=== PATIENT | male | born 1940 | race Caucasian/White ===

== ENCOUNTER → 2021-01-04 | Day surgery (SDC) | payer MEDICARE, OTHER ==
[~2021-01-04] MED LIST: Propofol 200 MG/20 ML SDV ONE; Sodium Chloride 0.9% 1,000 ML IV SCH; fentaNYL 100 MCG/2 ML SDV ONE
--- NOTE | 2021-01-04 16:40 | OR ---
DATE OF PROCEDURE: 01/04/2021 SURGEON: Jhonatan Garzon MD PROCEDURE: Colonoscopy. FINDINGS: 1. Descending colon polyp, approximately 5 mm, completely removed using cold biopsy forceps. 2. Diverticulosis, mild. COMPLICATIONS: None. CHEMISTRY FACULTY MEMBER: None. ANESTHESIA: MAC. PREOPERATIVE DIAGNOSIS: Screening colonoscopy. POSTOPERATIVE DIAGNOSIS: Screening colonoscopy. RISKS: Risks, benefits, alternatives, and limitations including, but not limited to infection, bleeding, perforation, false positives and false negatives were explained to the patient, who wished to proceed. PROCEDURE IN DETAIL: The patient was placed in left lateral decubitus position. Digital rectal exam was performed without abnormality. Scope was introduced and advanced atraumatically to the ileocecal valve. A photo was taken. The scope was brought back to the ascending, transverse, descending colon, and retroflexed. No evidence of old or new blood. No masses. No polyps. No abnormalities on retroflexion. The diverticulosis described as above was very mild. Greater than 8 minutes was spent removing the scope. Prep was acceptable. Approximately 90% of the luminal surface could be seen. Jhonatan Garzon MD /[id number]
== END ==
LOC: JP.SDS 07:55
PROVIDERS: ATTEND Surgery
DX: Z12.11 Encounter for screening for malignant neoplasm of colon (principal); D12.4 Benign neoplasm of descending colon; K57.30 Diverticulosis of large intestine without perforation or abscess without bleeding; I10 Essential (primary) hypertension; E11.9 Type 2 diabetes mellitus without complications; E66.9 Obesity, unspecified; Z68.37 Body mass index [BMI] 37.0-37.9, adult
CPT/HCPCS: 88305; J2704; J3010; J7030

== ENCOUNTER 2022-02-26 08:19 | Day surgery (SDC) | payer MEDICARE, OTHER ==
[~2022-02-26 08:19] MED LIST changes: +Midazolam 1 MG/ML 2 ML SDV ONE; -Sodium Chloride 0.9% 1,000 ML IV SCH
[2022-02-26] MEDS ORDERED: Dextrose 5%-Lactated Ringers 1,000 ML IV SCH (08:30)
[2022-02-26] MEDS ORDERED: Meropenem 500 MG in Sodium Chloride 0.9% 50 ML IV ONE (09:45)
[2022-02-26] MEDS ORDERED: Lidocaine 1% 50 ML MDV ONE (10:08)
[2022-02-26] MEDS ORDERED: Bupivacaine 0.5%/EPINEPHrine 1:200,000 50 ML MDV ONE (10:08)
[2022-02-26] MEDS ORDERED: Propofol 200 MG/20 ML SDV ONE ×2 (11:16→11:41)
[2022-02-26] MEDS ORDERED: Bacitracin Oint 1 GM U/D Packet ONE (11:31)
[2022-02-26 13:16] VITALS: BP 108/58; PULSE 54
== END 2022-02-26 13:00 | disposition home or self-care (01) ==
LOC: JP.SDS 08:19
PROVIDERS: ATTEND Surgery
DX: D23.71 Other benign neoplasm of skin of right lower limb, including hip (principal); I10 Essential (primary) hypertension; E11.9 Type 2 diabetes mellitus without complications; E66.9 Obesity, unspecified; E78.5 Hyperlipidemia, unspecified; Z79.810 Long term (current) use of selective estrogen receptor modulators (SERMs); Z79.899 Other long term (current) drug therapy
CPT/HCPCS: J2001; J2185; J2250; J2704; J3010; J3490; J7121

== ENCOUNTER 2024-10-12 12:07 | Inpatient (IN) | payer MEDICARE, OTHER ==
[2024-10-12] MEDS ORDERED: Polyethylene Glycol 3350 Powder 17 GM Packet PO PRN (12:15)
[2024-10-12] MEDS ORDERED: 50% Dextrose in Water 50 ML Syringe IV PRN (12:15)
[2024-10-12] MEDS ORDERED: Glucose Gel 15 GM in 37.5 GM Tube PO PRN (12:15)
[2024-10-12] MEDS ORDERED: oxyCODONE 5 MG Tab PO PRN (12:15)
[2024-10-12] MEDS ORDERED: Ondansetron 4 MG/2 ML SDV IV PRN (12:15)
[2024-10-12] MEDS ORDERED: Sodium Chloride 0.9% 10 ML Syringe FLUSH PRN (12:15)
[2024-10-12] MEDS: Sodium Chloride 0.9% 1,000 ML IV SCH ×2 (13:14→22:42)
[2024-10-12] MEDS: Enoxaparin 40 MG/0.4 ML Syringe SUBCUT SCH (13:14)
[2024-10-12] MEDS: cefTRIAXone 2 GM in Sodium Chloride 0.9% 50 ML IV ONE (13:15)
[2024-10-12] MEDS ORDERED: Melatonin 3 MG Tab PO PRN (13:46)
[2024-10-12] MEDS ORDERED: Non-Formulary Medication 1 Each (Dexamethasone [Dexamethasone] 4 MG Tablet) PO SCH (14:00)
[2024-10-12] MEDS: Insulin Lispro 100 Unit/ML 3 ML KwikPen SUBCUT SCH (18:21)
[2024-10-12] MEDS: Acetaminophen 325 MG Tab PO PRN (18:26)
[2024-10-12] MEDS ORDERED: Non-Formulary Medication 1 Each (Gemfibrozil [Gemfibrozil] 600 MG Tablet) PO SCH (21:00)
[2024-10-12] MEDS ORDERED: Non-Formulary Medication 1 Each (Simvastatin [Zocor] 20 MG Tablet) PO SCH (21:00)
[2024-10-12] MEDS ORDERED: Non-Formulary Medication 1 Each (Magnesium [Magnesium] 200 MG Tablet) PO SCH (21:00)
[2024-10-12] MEDS: Magnesium Oxide 400 MG Tab PO SCH (21:06)
[2024-10-12] MEDS: atorvaSTATin 10 MG Tab PO SCH (21:07)
[2024-10-13 05:50] LABS: HEMATOCRIT 20.8 % (38.4-49.7); MEAN CORPUSCULAR HEMOGLOBIN 31.7 pg (31.6-35.5); MEAN CORPUSCULAR HGB CONC 33.2 g/dL (31.6-35.5); MEAN CORPUSCULAR VOLUME 95.4 fL (81.4-99.0); RED BLOOD CELL COUNT 2.18 M/uL (4.14-5.76); WHITE BLOOD CELL COUNT,WBC 29.1 K/uL (3.2-11.0)
[2024-10-13 05:59] LABS: HEMOGLOBIN 6.9 g/dL (12.9-16.9)
[2024-10-13 06:05] LABS: CREATININE 1.4 mg/dL (0.8-1.3); EST CRCL DRUG DOSING (CG) 41.28 mL/min; MAGNESIUM 1.2 mg/dL (1.8-2.4); POTASSIUM,K 3.4 mmol/L (3.6-5.2)
[2024-10-13 06:06] LABS: ANION GAP 17.4 mmol/L (5.0-14.0)
[2024-10-13] MEDS: Fenofibrate 54 MG Tab PO SCH (08:36)
[2024-10-13] MEDS: Magnesium Oxide 400 MG Tab PO SCH (08:36)
[2024-10-13] MEDS: Diltiazem 120 MG Cap.CD PO SCH (08:37)
[2024-10-13] MEDS: Potassium Chloride 20 MEQ Tab.ER PO ONE ×2 (08:38→16:19)
[2024-10-13] MEDS ORDERED: DILTIAZEM HCL 120 MG PO SCH (09:00)
[2024-10-13] MEDS ORDERED: VANCOmycin 1 GM SDV IV SCH (09:00)
[2024-10-13] MEDS: VANCOmycin 2 GM in Sodium Chloride 0.9% 500 ML IV ONE (10:41)
[2024-10-13] MEDS: Magnesium Sulf/Wat 2 GM/50 mL 2 GM in Premix Bag 1 BAG IV SCH (10:41)
[2024-10-13] MEDS: Pantoprazole 40 MG Vial IVPUSH SCH (11:11)
[2024-10-13] MEDS: Sodium Chloride 0.9% 1,000 ML IV SCH (12:43)
[2024-10-13] MEDS: Acetaminophen 500 MG Tab PO PRN (13:05)
[2024-10-13] MEDS: cefTRIAXone 1 GM in Sodium Chloride 0.9% 50 ML IV SCH (13:14)
[2024-10-13] MEDS: cefTRIAXone 2 GM in Sodium Chloride 0.9% 50 ML IV SCH (14:15)
[2024-10-13 19:30] LABS: APPEARANCE,URINE SLIGHTLY CLOUDY (CLEAR); BILIRUBIN,URINE NEGATIVE (NEGATIVE); COLOR,URINE YELLOW (YELLOW); GLUCOSE,URINE NEGATIVE (NEGATIVE); KETONES,URINE NEGATIVE (NEGATIVE); LEUKOCYTE ESTERASE,URINE SMALL (NEGATIVE); NITRITE,URINE NEGATIVE (NEGATIVE); OCCULT BLOOD,URINE LARGE (NEGATIVE); PROTEIN,URINE >=300 mg/dL (NEGATIVE); UROBILINOGEN,URINE 0.2 EU/dL (0.2-1.0)
[2024-10-13 19:43] LABS: AMORPHOUS SEDIMENT,URINE NOT SEEN; BACTERIA,URINE FEW; EPITHELIAL CELLS,URINE NOT SEEN; MUCUS,URINE NOT SEEN; RBC,URINE 40-50 (0-5)
[2024-10-14 05:46] LABS: HEMATOCRIT 24.9 % (38.4-49.7); HEMOGLOBIN 8.3 g/dL (12.9-16.9); MEAN CORPUSCULAR HEMOGLOBIN 30.7 pg (31.6-35.5); MEAN CORPUSCULAR HGB CONC 33.3 g/dL (31.6-35.5); MEAN CORPUSCULAR VOLUME 92.2 fL (81.4-99.0); RED BLOOD CELL COUNT 2.7 M/uL (4.14-5.76); WHITE BLOOD CELL COUNT,WBC 25.2 K/uL (3.2-11.0)
[2024-10-14 06:08] LABS: ANION GAP 16.7 mmol/L (5.0-14.0); CALCIUM 8.6 mg/dL (8.5-10.1); CREATININE 1.3 mg/dL (0.8-1.3); EST CRCL DRUG DOSING (CG) 44.46 mL/min; MAGNESIUM 2.3 mg/dL (1.8-2.4); POTASSIUM,K 3.7 mmol/L (3.6-5.2); VANCOMYCIN RANDOM 10.3 ug/mL (0.0-50.0)
[2024-10-14] MEDS: VANCOmycin 1.5 GM in Sodium Chloride 0.9% 250 ML IV SCH (09:54)
[2024-10-14] MEDS: Pantoprazole 40 MG Tab.CR PO SCH (15:58)
[2024-10-14] MEDS: diphenhydrAMINE 25 MG Cap PO PRN (21:31)
[2024-10-15 06:08] LABS: HEMATOCRIT 25.9 % (38.4-49.7); HEMOGLOBIN 8.6 g/dL (12.9-16.9); MEAN CORPUSCULAR HEMOGLOBIN 30.7 pg (31.6-35.5); MEAN CORPUSCULAR HGB CONC 33.2 g/dL (31.6-35.5); MEAN CORPUSCULAR VOLUME 92.5 fL (81.4-99.0); RED BLOOD CELL COUNT 2.8 M/uL (4.14-5.76); WHITE BLOOD CELL COUNT,WBC 17.4 K/uL (3.2-11.0)
[2024-10-15 06:31] LABS: CALCIUM 8.5 mg/dL (8.5-10.1); CREATININE 1.2 mg/dL (0.8-1.3); EST CRCL DRUG DOSING (CG) 48.16 mL/min; POTASSIUM,K 3.5 mmol/L (3.6-5.2)
[2024-10-15 06:33] LABS: ANION GAP 16.5 mmol/L (5.0-14.0)
[2024-10-15] MEDS: Ampicillin 2 GM in Sodium Chloride 0.9% 100 ML IV SCH (08:24)
[2024-10-15] MEDS: Potassium Chloride 20 MEQ Tab.ER PO ONE ×2 (08:29→16:28)
[2024-10-16 05:40] LABS: HEMATOCRIT 29.1 % (38.4-49.7); HEMOGLOBIN 9.4 g/dL (12.9-16.9); MEAN CORPUSCULAR HEMOGLOBIN 30.4 pg (31.6-35.5); MEAN CORPUSCULAR HGB CONC 32.3 g/dL (31.6-35.5); MEAN CORPUSCULAR VOLUME 94.2 fL (81.4-99.0); RED BLOOD CELL COUNT 3.09 M/uL (4.14-5.76); WHITE BLOOD CELL COUNT,WBC 13.1 K/uL (3.2-11.0)
[2024-10-16 05:53] LABS: ANION GAP 10.3 mmol/L (5.0-14.0); CREATININE 1.2 mg/dL (0.8-1.3); EST CRCL DRUG DOSING (CG) 48.16 mL/min; POTASSIUM,K 4.2 mmol/L (3.6-5.2)
== END 2024-10-16 10:05 | disposition home or self-care (01) | DRG 872 ==
LOC: JP.MS 12:07
PROVIDERS: ADMIT Hospitalist; ATTEND Hospitalist
PROC: 30233N1 Transfusion of Nonautologous Red Blood Cells into Peripheral Vein, Percutaneous Approach (ICD-10-PCS; principal; 2024-10-12)
PROC: 3E03329 Introduction of Other Anti-infective into Peripheral Vein, Percutaneous Approach (ICD-10-PCS; principal; 2024-10-12)
DX: A41.9 Sepsis, unspecified organism (principal); C7A.8 Other malignant neuroendocrine tumors; N13.6 Pyonephrosis; H26.9 Unspecified cataract; E78.00 Pure hypercholesterolemia, unspecified; N40.0 Benign prostatic hyperplasia without lower urinary tract symptoms; I10 Essential (primary) hypertension; E11.9 Type 2 diabetes mellitus without complications; D64.9 Anemia, unspecified; B95.2 Enterococcus as the cause of diseases classified elsewhere; C67.9 Malignant neoplasm of bladder, unspecified; Z79.899 Other long term (current) drug therapy; Z98.890 Other specified postprocedural states; Z88.8 Allergy status to other drugs, medicaments and biological substances
CPT/HCPCS: 36415; 36430; 74176; 74176-26; 80048; 80202; 81001; 82272; 82947; 83605; 83735; 85018; 85027; 86850; 86900; 86901; 86920; 86922; 87086; 87088; 87186; 97161-GP; 99222; 99232; 99238; A9270-GY; J0290; J0696; J1650; J1815; J2470; J3475; J7030; J7040; P9016

== ENCOUNTER 2025-01-13 22:43 | Emergency (ER) | payer MEDICARE, OTHER | END 2025-01-13 23:21 | disposition home or self-care (01) | LOC: JP.ED 22:43 | DX: T83.091A Other mechanical complication of indwelling urethral catheter, initial encounter (principal); Y84.6 Urinary catheterization as the cause of abnormal reaction of the patient, or of later complication, without mention of misadventure at the time of the procedure | CPT/HCPCS: 99281 ==

== ENCOUNTER 2025-02-20 18:35 | Emergency (ER) | payer MEDICARE, OTHER | END 2025-02-20 22:17 | disposition home or self-care (01) | LOC: JP.ED 18:35 | DX: Z48.00 Encounter for change or removal of nonsurgical wound dressing (principal); Z96.89 Presence of other specified functional implants; I10 Essential (primary) hypertension; E78.00 Pure hypercholesterolemia, unspecified; Z91.041 Radiographic dye allergy status; Z88.8 Allergy status to other drugs, medicaments and biological substances; Z79.899 Other long term (current) drug therapy | CPT/HCPCS: 99283 ==

== ENCOUNTER 2025-03-11 03:41 | Emergency (ER) | payer MEDICARE, OTHER ==
[2025-03-11 04:44] LABS: BASOPHILS PERCENT AUTO 0.2 % (0.1-1.3); EOSINOPHILS ABSOLUTE AUTO 0.07 K/uL (0.00-0.40); EOSINOPHILS PERCENT AUTO 0.8 % (0.0-5.4); IMMATURE GRAN ABSOLUTE AUTO 0.10 K/uL (0.00-0.23); IMMATURE GRAN PERCENT AUTO 1.2 % (0.0-0.7); LYMPHOCYTES ABSOLUTE AUTO 2.71 K/uL (0.8-3.3); LYMPHOCYTES PERCENT AUTO 32.7 % (11.4-47.7); MONOCYTES ABSOLUTE AUTO 0.68 K/uL (0.20-0.90); MONOCYTES PERCENT AUTO 8.2 % (3.3-12.6); NEUTROPHILS ABSOLUTE AUTO 4.72 K/uL (1.0-7.6); NEUTROPHILS PERCENT AUTO 56.9 % (40.0-78.1); PLATELET COUNT,PLT 132 K/uL (130-375); RED BLOOD CELL COUNT 2.24 M/uL (4.14-5.76); WHITE BLOOD CELL COUNT,WBC 8.3 K/uL (3.2-11.0)
[2025-03-11 05:01] LABS: BASOPHILS ABSOLUTE AUTO 0.02 K/uL (0.00-0.10)
[2025-03-11 05:05] LABS: A/G RATIO 0.8 (1.2-2.2); ALANINE AMINOTRANSFERASE,ALT 12 U/L (12-78); ASPARTATE AMNIOTRANSFERASE,AST 16 U/L (15-37); BILIRUBIN TOTAL 0.5 mg/dL (0.2-1.0); BLOOD UREA NITROGEN,BUN 36 mg/dL (7-18); CARBON DIOXIDE,CO2 22 mmol/L (21-32); CHLORIDE,CL 101 mmol/L (100-108); CREATININE 1.8 mg/dL (0.8-1.3); ESTIMATED GFR 37 mL/min (>60); GLUCOSE RANDOM 148 mg/dL (74-106); POTASSIUM,K 3.9 mmol/L (3.6-5.2); PROTEIN TOTAL,TP 6.5 g/dL (6.4-8.2); SODIUM,NA 136 mmol/L (140-148)
[2025-03-11 05:10] LABS: LACTIC ACID 1.3 mmol/L (0.4-2.0)
[2025-03-11 05:59] LABS: APPEARANCE,URINE CLOUDY (CLEAR); GLUCOSE,URINE NEGATIVE (NEGATIVE); OCCULT BLOOD,URINE LARGE (NEGATIVE)
[2025-03-11 06:04] LABS: SQUAMOUS EPITHELIAL CELLS,UR NOT SEEN /HPF; UROTHELIAL CELLS,URINE NOT SEEN /HPF
== END 2025-03-11 08:24 | disposition home or self-care (01) ==
LOC: JP.ED 03:41
DX: N39.0 Urinary tract infection, site not specified (principal); E78.00 Pure hypercholesterolemia, unspecified; I10 Essential (primary) hypertension; E11.9 Type 2 diabetes mellitus without complications; Z91.041 Radiographic dye allergy status; Z88.8 Allergy status to other drugs, medicaments and biological substances; Z79.899 Other long term (current) drug therapy
CPT/HCPCS: 36415; 80053; 81001; 83605; 85018; 85025; 86140; 86850; 86900; 86901; 87086; 87088; 87186; 96365; 99284; J0696; J7030

== ENCOUNTER 2025-03-11 20:21 | Emergency (ER) | payer MEDICARE, OTHER | END 2025-03-11 22:09 | disposition home or self-care (01) | LOC: JP.ED 20:21 | DX: N39.0 Urinary tract infection, site not specified (principal); E78.00 Pure hypercholesterolemia, unspecified; I10 Essential (primary) hypertension; E11.9 Type 2 diabetes mellitus without complications; Z91.041 Radiographic dye allergy status; Z88.8 Allergy status to other drugs, medicaments and biological substances; Z79.899 Other long term (current) drug therapy | CPT/HCPCS: 99283 ==